=== PATIENT | female | born 1975 | race Caucasian/White ===

== ENCOUNTER 2018-02-06 10:43 | Emergency (ER) | payer OTHER ==
[~2018-02-06] VITALS: Ht 152.4 cm; Wt 113.4 kg
--- NOTE | ~2018-02-06 | EKG ---
[place] [address] [facility] [place] [address] ELECTROCARDIOGRAM REPORT Name: RANDALL FINNEY Room #: DEP [facility]USGoldy#: [id number] Admission: 02/06/18 Attend Phys: Discharge: 02/06/18 Date of : 79 Report #: [id number] THIS REPORT FOR: //name// [facility] ED Test Date: 2018-02-06 Test Time: 10:54:37 Pat Name: RANDALL FINNEY Department: Room: Gender: F Clinical Registered Nurse: LIO : 1975 Requested By: Pilo Bailey Order Number: [id number] MD: Gareth Landis Measurements Intervals [place] Rate: 88 P: 36 MI: 131 QRS: 25 QRSD: 93 T: 11 QT: 342 QTc: 414 Interpretive Statements Sinus rhythm Low voltage, precordial leads Compared to ECG 08/05/2013 12:10:30 No significant changes Electronically Signed On 02-07-2018 11:00:51 CDT by Gareth Landis [email or web address] <ELECTRONICALLY SIGNED> By: Gareth Landis MD 02/07/18 1100 1054 1054 Gareth Landis MD /AYALA
[~2018-02-06 10:43] MED LIST: ADVAIR 250-501 EACH INH; ALEVE220 M1 PO; FISH OIL 1,001000 M1 PO; LASIX 20 MG TAB20 MG PO; LOSARTAN-HCTZ1 EAC2 PO; OXYCONTIN10 M1 PO; PROAIR HFA8.5 GM INH; RANITIDINE HCL300 M1 PO; SERTRALINE HCL100 MG PO; SYNTHROID150 MCG PO; XANAX XR1 MG PO
[2018-02-06 11:20] LABS: ABSOLUTE NEUTROPHILS 4.6 thou/uL (1.4-8.2); BASOPHILS 0.6 % (0.0-2.0); EOSINOPHILS 4.4 % (0.0-3.0); HEMATOCRIT 37.1 % (37.0-47.0); HEMOGLOBIN 12.9 gm/dL (12.0-15.0); LYMPHOCYTES 25.6 % (24.0-44.0); MCH 30.1 pg (26.0-34.0); MCHC 34.7 g/dL (28.0-37.0); MONOCYTES 6.1 % (1.0-8.0); PLATELET COUNT 251 thou/uL (150-400); POLYS 63.3 % (36.0-66.0); RBC 4.27 mil/uL (4.20-5.00); RDW 13.7 % (10.5-14.5); WBC 7.3 thou/uL (4.0-11.0)
[2018-02-06] MEDS ORDERED: ZOLPIDEM TARTRA10 MG PO (11:20)
[2018-02-06] MEDS ORDERED: ALBUTEROL2.5 MG/31 INH (11:20)
[2018-02-06] MEDS ORDERED: OMEPRAZOLE 20 M20 M1 PO (11:22)
[2018-02-06] MEDS ORDERED: PERCOCET 10-321 EACH PO (11:22)
[2018-02-06] MEDS ORDERED: XANAX 0.5 MG0.5 MG PO (11:27)
[2018-02-06 11:29] LABS: ANION GAP 8 mmol/L (7-16); BUN 12 mg/dL (7-18); CALCIUM 8.5 mg/dL (8.5-10.1); CHLORIDE 102 mmol/L (98-107); CO2 25 mmol/L (21-32); CREATININE 0.8 mg/dL (0.6-1.0); GLUCOSE 135 mg/dL (74-106); POTASSIUM 4.3 mmol/L (3.5-5.1); SODIUM 135 mmol/L (136-145)
[2018-02-06 11:39] LABS: TROPONIN-I <0.06 ng/mL (<0.06)
[2018-02-06 11:54] LABS: AMP/METHAMP Negative (Negative); BARBITURATES Negative (Negative); BENZODIAZEPINES POSITIVE (Negative); COCAINE Negative (Negative); METHADONE Negative (Negative); OPIATES POSITIVE (Negative); PCP Negative (Negative)
[2018-02-06] MEDS ORDERED: CARAFATE 1 GM TA1 G1 PO (13:28)
== END 2018-02-06 14:11 | disposition home or self-care (01) ==
LOC: ER 10:43
PROVIDERS: Emergency Medicine
DX: K21.9 Gastro-esophageal reflux disease without esophagitis (principal); J45.909 Unspecified asthma, uncomplicated; I10 Essential (primary) hypertension; G89.29 Other chronic pain; R10.9 Unspecified abdominal pain; Z98.890 Other specified postprocedural states